=== PATIENT | female | born 1945 | race Caucasian/White ===

== ENCOUNTER 2018-06-20 11:44 | Observation (INO) | payer MEDICARE ==
[2018-06-20 11:48] VITALS: BMI 34.3
--- NOTE | 2018-06-20 12:29 | ED PDOC ---
HPI: CCC, URI, Sore Throat Time Seen by Provider: 06/20/18 12:15 Chief Complaint (Nursing): ENT Problem Chief Complaint (Provider): EENT problem History Per: Patient History/Exam Limitations: no limitations Onset/Duration Of Symptoms: Days (4x) Current Symptoms Are (Timing): Still Present Location Of Pain: Ear(s) (bilateral) Ear Symptoms: Bilateral: Ear Pain (with ringing) Severity: Moderate Additional Complaint(s): 73 year old female with a past medical history of diabetes, hypertension, and hyperlipidemia presents to the ED for an evaluation of bilateral ear pain and ringing associated with difficulty hearing that started 3x days ago. Patient states that she was seen in the clinic for the same complaint, and had bloodwork done. Patient was noted to have high cholesterol and was given a prescription for the pain. Patient states that the pain has persisted, prompting ED visit today. PMD: [facility] Past Medical History Reviewed: Historical Data, Nursing Documentation, Vital Signs Vital Signs: Last Vital Signs Temp 98.0 F 06/20/18 11:48 Pulse 93 H 06/20/18 11:48 Resp 18 06/20/18 11:48 BP 147/78 06/20/18 11:48 Pulse Ox 99 06/20/18 11:48 RENÉ Report Viewed: Yes - Medical History PMH: Diabetes, HTN, Hyperlipidemia - Surgical History Other surgeries: left knee surgery - Family History Family History: States: No Known Family Hx - Social History Current smoker - smoking cessation education provided: No Alcohol: None Drugs: Denies - Home Medications Home Medications: Ambulatory Orders Medication Instructions Recorded Amitriptyline [Elavil] 1 tab PO HS 06/20/18 Atorvastatin Calcium 20 mg PO DAILY 06/20/18 Losartan/Hydrochlorothiazide 1 tab PO DAILY 06/20/18 [Losartan-Hctz 100-25 mg Tab] Naproxen [Naprosyn] 500 mg PO Q12 PRN 06/20/18 Sitagliptin Phos/Metformin HCl 1 tab PO BID 06/20/18 [Janumet 50-1,000 mg Tablet] - Allergies Allergies/Adverse Reactions: Allergies Allergy/AdvReac Type Severity Reaction Status Date / Time No Known Allergies Allergy Verified 06/20/18 11:48 Review of Systems ROS Statement: Except As Marked, All Systems Reviewed And Found Negative ENT: Positive for: Ear Pain (ear ringing, difficulty hearing) Physical Exam - Reviewed Nursing Documentation Reviewed: Yes Vital Signs Reviewed: Yes - Physical Exam Appears: Positive for: Well, Non-toxic, No Acute Distress Head Exam: Positive for: ATRAUMATIC, NORMOCEPHALIC Skin: Positive for: Normal Color, Warm, Dry Eye Exam: Positive for: Normal appearance, EOMI, PERRL ENT: Positive for: Other (left ear: wax noted) Neurological/Psych: Positive for: Awake, Alert, Oriented (3x) - Laboratory Results Result Diagrams: 06/20/18 13:30 06/20/18 13:30 - ECG ECG Rhythm: Positive for: Sinus Rhythm (nsr 71bpm; RBBB) O2 Sat by Pulse Oximetry: 99 (RA) Pulse Ox Interpretation: Normal - CT Scan/US CT head w/o contrast Other Rad Studies (CT/US): Read By Radiologist, Radiology Report Reviewed (see MDM note) - Progress ED Course And Treament: ZOSYN 3.375GM IV X 1 DOSE DECADRON 10 MG IV X 1 DOSE TORADOL 15 MG IV X 1 DOSE Medical Decision Making Medical Decision Makin:15 Initial impression: 73 year old female with bilateral ear pain Initial plan: Left ear noted to have wax. After wax removal, patient states that her symptoms are the same. Patient notes that the pain in her right ear is intermittent, and the pain is mostly in her left ear. * CT head w/o contrast * reevaluation 13:20 CT head read and reviewed by radiologist FINDINGS: HEMORRHAGE: No intracranial hemorrhage. BRAIN: No mass effect or edema. Mild cerebral cortical atrophy is noted consistent with the patient's age. Minor microangiopathic changes are seen in the white matter tracts. No cortical effacement is seen. There is calcific atherosclerotic change of the distal intracranial internal carotid arteries. Retro-orbital regions are unremarkable. No tonsillar ectopia is seen. No sellar masses are noted VENTRICLES: Unremarkable. No hydrocephalus. CALVARIUM: Unremarkable. PARANASAL SINUSES: Mild mucosal changes are seen in the ethmoid air cell region. No fluid levels are seen in the sinuses. MASTOID AIR CELLS: There is moderate bilateral mastoid air cell opacifications and fluid with portions of the fluid noted in the middle ear cavity regions. No gross bone destruction is appreciated. Findings suggest bilateral mastoiditis, mastoid air cell disease, and otitis media. OTHER FINDINGS: None. IMPRESSION: Bilateral mastoid air cell disease and otitis media. No gross bone destruction. Unremarkable CT scan of the brain for intracranial hemorrhage or recent infarct. 15:[address] reviewed with him. recommends steroids and admission. Discussed with for admission. Scribe Attestation: Documented by Shira Donnelly, acting as a scribe for Judd Crowell PA-C. Provider Scribe Attestation: All medical record entries made by the Scribe were at my direction and personally dictated by me. I have reviewed the chart and agree that the record accurately reflects my personal performance of the history, physical exam, medical decision making, and the department course for this patient. I have also personally directed, reviewed, and agree with the discharge instructions and disposition. Disposition - Clinical Impression Clinical Impression: Mastoiditis - Patient ED Disposition Is Patient to be Admitted: Yes - Disposition Disposition Time: 15:14 Condition: FAIR - Pt Status Changed To: Hospital Disposition Of: Observation
--- NOTE | 2018-06-20 13:23 | CT ---
Date of service: 06/20/2018 PROCEDURE: CT HEAD WITHOUT CONTRAST. HISTORY: ear pain/loss of hearing COMPARISON: None available. TECHNIQUE: Axial computed tomography images were obtained through the head/brain without intravenous contrast. Radiation dose: Total exam DLP = 867.54 mGy-cm. This CT exam was performed using one or more of the following dose reduction techniques: Automated exposure control, adjustment of the mA and/or kV according to patient size, and/or use of iterative reconstruction technique. FINDINGS: HEMORRHAGE: No intracranial hemorrhage. BRAIN: No mass effect or edema. Mild cerebral cortical atrophy is noted consistent with the patient's age. Minor microangiopathic changes are seen in the white matter tracts. No cortical effacement is seen. There is calcific atherosclerotic change of the distal intracranial internal carotid arteries. Retro-orbital regions are unremarkable. No tonsillar ectopia is seen. No sellar masses are noted VENTRICLES: Unremarkable. No hydrocephalus. CALVARIUM: Unremarkable. PARANASAL SINUSES: Mild mucosal changes are seen in the ethmoid air cell region. No fluid levels are seen in the sinuses. MASTOID AIR CELLS: There is moderate bilateral mastoid air cell opacifications and fluid with portions of the fluid noted in the middle ear cavity regions. No gross bone destruction is appreciated. Findings suggest bilateral mastoiditis, mastoid air cell disease, and otitis media. OTHER FINDINGS: None. IMPRESSION: Bilateral mastoid air cell disease and otitis media. No gross bone destruction. Unremarkable CT scan of the brain for intracranial hemorrhage or recent infarct.
[2018-06-20] MEDS ORDERED: Piperacillin/Tazobact 3.375 GM in Sodium Chloride 0.9% 100 ML IVPB STA (13:30)
[2018-06-20] MEDS ORDERED: Piperacillin/Tazobact 3.375 gm Inj IVPB ONE (13:34)
[2018-06-20 13:50] LABS: VENOUS BLOOD GAS PCO2 50 mmHg (40-60); VENOUS BLOOD GAS PO2 18 mm/Hg (30-55)
[2018-06-20 14:24] LABS: BASO # 0.1 K/uL (0.0-0.2); EOS # 0.2 K/uL (0.0-0.7); EOS % 2.7 % (0.0-4.0); HEMOGLOBIN 13.5 g/dL (12.0-16.0); LYMPH # 1.5 K/uL (1.0-4.3); MEAN CELL VOLUME 88.7 fl (81.0-99.0); MEAN CORPUSCULAR HEMOGLOBIN 29.4 pg (27.0-31.0); MEAN CORPUSCULAR HGB CONC 33.2 g/dL (33.0-37.0); MEAN PLATELET VOLUME 9.3 fl (7.2-11.7); MONO # 0.7 K/uL (0.0-0.8); MONO % 9.7 % (0.0-10.0); NEUT % 66.6 % (50.0-75.0); NRBC % 0.1 % (0.0-0.0); RBC 4.59 Mil/uL (3.80-5.20); RED CELL DISTRIBUTION WIDTH 14.1 % (11.5-14.5); WHITE BLOOD COUNT 7.6 K/uL (4.8-10.8)
[2018-06-20 14:47] LABS: BLOOD UREA NITROGEN 27 mg/dl (7-17); GFR NON-AFRICAN AMERICAN 55
[2018-06-20] MEDS ORDERED: Dexamethasone 10 MG in Dextrose 5% In Water 50 ML IV ONE (14:51)
--- NOTE | 2018-06-20 15:44 | CP.PCM.HP ---
<Brianna Alvarado - Last Filed: 06/20/18 17:15> History of Present Illness - History of Present Illness History of Present Illness: Pt is a 73 yo F with a pmhx of DM, HTN, HLD presented to the ED due to to fullness/throbbing pain in B/L ears starting 3 days ago, headache, pt took ibuprofen for pain. Pt was recently seen by her ENT who performed wax removal and sent her here due to mastoiditis. Pt has no hx of being hard of hearing or wears hearing aids. Reports fevers and chills. Denies CP/SOB/N/V/D/C. PMD: Dr. Stone Ahn ENT: Dr. Morgan PMHx:DM, HTN, HLD, psoriasis Meds: Naprosyn 500mg Q12, Amitriptyline 10mg HS, Atorvastatin 20mg QD, Losartan- HCTZ 100-25mg QD, Janumet 50-1,000mg BID Allergies: NKDA Surg: L knee surgery 2013 Social: Denies tobacco, EtOH or drug use Family Hx: Grandmother ovarian Ca Code status: Full code ED course: Zosyn x1, Decadron x1, Toradol x1, Head CT without contrast- Bilateral mastoid air cell disease and otitis media. No gross bone destruction. Unremarkable CT scan of the brain for intracranial hemorrhage or recent infarct. CBC, VBG, BMP, U/A Present on Admission - Present on Admission Any Indicators Present on Admission: No History of DVT/PE: No History of Uncontrolled Diabetes: No Urinary Catheter: No Decubitus Ulcer Present: No Review of Systems - Constitutional Constitutional: Chills, Fever, Headache - EENT Ears: Ear Pain (Fullness/throbbing ) Past Patient History - Past Social History Smoking Status: Never Smoked Alcohol: None Drugs: Denies - CARDIAC Hx Hypertension: Yes - ENDOCRINE/METABOLIC Hx Diabetes Mellitus Type 2: Yes - PSYCHIATRIC Hx Substance Use: No - SURGICAL HISTORY Hx Surgeries: Yes Hx Orthopedic Surgery: Yes (left knee) - ANESTHESIA Hx Anesthesia: Yes Meds Allergies/Adverse Reactions: Allergies Allergy/AdvReac Type Severity Reaction Status Date / Time No Known Allergies Allergy Verified 06/20/18 11:48 Physical Exam - Constitutional Appears: Non-toxic, No Acute Distress - Head Exam Head Exam: ATRAUMATIC, NORMAL INSPECTION, NORMOCEPHALIC - Eye Exam Eye Exam: EOMI - ENT Exam ENT Exam: Mucous Membranes Moist, Normal External Ear Exam Additional comments: fluid behind TM's B/L, non erythematous and nonbulging TM - Respiratory Exam Respiratory Exam: Clear to Auscultation Bilateral. absent: Rales, Rhonchi, Wheezes - Cardiovascular Exam Cardiovascular Exam: RRR, +S1, +S2 - GI/Abdominal Exam GI & Abdominal Exam: Normal Bowel Sounds, Soft. absent: Tenderness - Extremities Exam Extremities exam: Positive for: normal inspection - Neurological Exam Neurological exam: Alert, Oriented x3 Results - Vital Signs Recent Vital Signs: Last Vital Signs Temp 98.0 F 06/20/18 11:48 Pulse 93 H 06/20/18 11:48 Resp 18 06/20/18 11:48 BP 147/78 06/20/18 11:48 Pulse Ox 99 06/20/18 15:15 - Labs Result Diagrams: 06/20/18 13:30 06/20/18 13:30 Labs: Laboratory Results - last 24 hr 06/20/18 06/20/18 06/20/18 13:30 13:30 13:42 WBC 7.6 RBC 4.59 Hgb 13.5 Hct 40.7 MCV 88.7 MCH 29.4 MCHC 33.2 RDW 14.1 Plt Count 225 MPV 9.3 Neut % (Auto) 66.6 Lymph % (Auto) 20.0 [place] % (Auto) 9.7 Eos % (Auto) 2.7 Baso % (Auto) 1.0 Neut # (Auto) 5.0 Lymph # (Auto) 1.5 [place] # (Auto) 0.7 Eos # (Auto) 0.2 Baso # (Auto) 0.1 pO2 18 L VBG pH 7.40 VBG pCO2 50 VBG HCO3 26.9 VBG Total CO2 32.5 H VBG O2 Sat (Calc) 29.8 L VBG Base Excess 5.0 H VBG Potassium 3.5 L Glucose 90 Lactate 1.1 FiO2 21.0 Sodium 141 139.0 Potassium 3.7 Chloride 100 101.0 Carbon Dioxide 30 Anion Gap 15 BUN 27 H Creatinine 1.0 Est GFR ( Amer) > 60 Est GFR (Non-Af Amer) 55 Random Glucose 95 Calcium 10.0 Venous Blood Potassium 3.5 L Assessment & Plan - Assessment and Plan (Free Text) Assessment: Pt is a 73 yo F with a pmhx of DM, HTN, HLD presented to the ED due to to fullness/throbbing pain in B/L ears starting 3 days ago admitted due to B/L mastoiditis B/L Mastoiditis acute Zosyn x1, Decadron x1, Toradol x1, EKG sinus rhythm Start Zosyn 3.375mg Q 6h (Day 1) Head CT without contrast- Bilateral mastoid air cell disease and otitis media. No gross bone destruction. Unremarkable CT scan of the brain for intracranial hemorrhage or recent infarct. ENT consulted-Dr. Cathy Phillips f/u reccs F/u BMP, CBC, blood cx in AM DM chronic, controlled POC 121 c/w Metformin 1000mg BID and Januvia 100mg Daily HTN chronic, controlled c/w HCTZ 25mg QD, Cozaar 100mg QD HLD chronic, controlled c/w Lipitor Diet Heart healthy DVT PPx Lovenox 40mg SC <Asif Estebannino D - Last Filed: 06/21/18 12:48> Results - Vital Signs Recent Vital Signs: Last Vital Signs Temp 98.0 F 06/21/18 07:37 Pulse 63 06/21/18 09:31 Resp 19 06/21/18 07:37 BP 132/76 06/21/18 09:31 Pulse Ox 95 06/21/18 07:37 - Labs Result Diagrams: 06/21/18 06:30 06/21/18 06:30 Labs: Laboratory Results - last 24 hr 06/20/18 06/20/18 06/20/18 13:30 13:30 13:42 WBC 7.6 RBC 4.59 Hgb 13.5 Hct 40.7 MCV 88.7 MCH 29.4 MCHC 33.2 RDW 14.1 Plt Count 225 MPV 9.3 Neut % (Auto) 66.6 Lymph % (Auto) 20.0 [place] % (Auto) 9.7 Eos % (Auto) 2.7 Baso % (Auto) 1.0 Neut # (Auto) 5.0 Lymph # (Auto) 1.5 [place] # (Auto) 0.7 Eos # (Auto) 0.2 Baso # (Auto) 0.1 pO2 18 L VBG pH 7.40 VBG pCO2 50 VBG HCO3 26.9 VBG Total CO2 32.5 H VBG O2 Sat (Calc) 29.8 L VBG Base Excess 5.0 H VBG Potassium 3.5 L Glucose 90 Lactate 1.1 FiO2 21.0 Sodium 141 139.0 Potassium 3.7 Chloride 100 101.0 Carbon Dioxide 30 Anion Gap 15 BUN 27 H Creatinine 1.0 Est GFR ( Amer) > 60 Est GFR (Non-Af Amer) 55 POC Glucose (mg/dL) Random Glucose 95 Calcium 10.0 Venous Blood Potassium 3.5 L Urine Color Urine Clarity Urine pH Ur Specific [place] Urine Protein Urine Glucose (UA) Urine Ketones Urine Blood Urine Nitrate Urine Bilirubin Urine Urobilinogen Ur Leukocyte Esterase Urine RBC (Auto) Urine Microscopic WBC Ur Squamous Epith Cells Amorphous Sediment Urine Bacteria 06/20/18 06/20/18 06/21/18 16:18 16:50 00:32 WBC RBC Hgb Hct MCV MCH MCHC RDW Plt Count MPV Neut % (Auto) Lymph % (Auto) [place] % (Auto) Eos % (Auto) Baso % (Auto) Neut # (Auto) Lymph # (Auto) [place] # (Auto) Eos # (Auto) Baso # (Auto) pO2 VBG pH VBG pCO2 VBG HCO3 VBG Total CO2 VBG O2 Sat (Calc) VBG Base Excess VBG Potassium Glucose Lactate FiO2 Sodium Potassium Chloride Carbon Dioxide Anion Gap BUN Creatinine Est GFR ( Amer) Est GFR (Non-Af Amer) POC Glucose (mg/dL) 121 H 209 H Random Glucose Calcium Venous Blood Potassium Urine Color Clementine Urine Clarity Turbid Urine pH 5.0 Ur Specific [place] 1.025 Urine Protein 30 Urine Glucose (UA) Neg Urine Ketones Negative Urine Blood Moderate Urine Nitrate Negative Urine Bilirubin Negative Urine Urobilinogen 0.2-1.0 Ur Leukocyte Esterase Trace Urine RBC (Auto) 15 H Urine Microscopic WBC 8 H Ur Squamous Epith Cells 7 H Amorphous Sediment Rare H Urine Bacteria Occ H 06/21/18 06/21/18 06/21/18 04:57 06:30 06:30 WBC 7.5 RBC 4.43 Hgb 13.0 Hct 39.4 MCV 88.9 MCH 29.3 MCHC 33.0 RDW 14.1 Plt Count 250 MPV 9.4 Neut % (Auto) 84.4 H Lymph % (Auto) 11.6 L [place] % (Auto) 3.6 Eos % (Auto) 0.1 Baso % (Auto) 0.3 Neut # (Auto) 6.4 Lymph # (Auto) 0.9 L [place] # (Auto) 0.3 Eos # (Auto) 0.0 Baso # (Auto) 0.0 pO2 VBG pH VBG pCO2 VBG HCO3 VBG Total CO2 VBG O2 Sat (Calc) VBG Base Excess VBG Potassium Glucose Lactate FiO2 Sodium 139 Potassium 4.0 Chloride 100 Carbon Dioxide 26 Anion Gap 17 BUN 33 H Creatinine 1.2 Est GFR ( Amer) 53 Est GFR (Non-Af Amer) 44 POC Glucose (mg/dL) 153 H Random Glucose 161 H Calcium 9.6 Venous Blood Potassium Urine Color Urine Clarity Urine pH Ur Specific [place] Urine Protein Urine Glucose (UA) Urine Ketones Urine Blood Urine Nitrate Urine Bilirubin Urine Urobilinogen Ur Leukocyte Esterase Urine RBC (Auto) Urine Microscopic WBC Ur Squamous Epith Cells Amorphous Sediment Urine Bacteria 06/21/18 11:01 WBC RBC Hgb Hct MCV MCH MCHC RDW Plt Count MPV Neut % (Auto) Lymph % (Auto) [place] % (Auto) Eos % (Auto) Baso % (Auto) Neut # (Auto) Lymph # (Auto) [place] # (Auto) Eos # (Auto) Baso # (Auto) pO2 VBG pH VBG pCO2 VBG HCO3 VBG Total CO2 VBG O2 Sat (Calc) VBG Base Excess VBG Potassium Glucose Lactate FiO2 Sodium Potassium Chloride Carbon Dioxide Anion Gap BUN Creatinine Est GFR ( Amer) Est GFR (Non-Af Amer) POC Glucose (mg/dL) 212 H Random Glucose Calcium Venous Blood Potassium Urine Color Urine Clarity Urine pH Ur Specific [place] Urine Protein Urine Glucose (UA) Urine Ketones Urine Blood Urine Nitrate Urine Bilirubin Urine Urobilinogen Ur Leukocyte Esterase Urine RBC (Auto) Urine Microscopic WBC Ur Squamous Epith Cells Amorphous Sediment Urine Bacteria Attending/Attestation - Attestation I have personally seen and examined this patient.: Yes I have fully participated in the care of the patient.: Yes I have reviewed all pertinent clinical information: Yes Notes (Text): 06/21/18 12:47 Patient seen and examined with resident. Case discussed and agreed with assessment and plan of management
[2018-06-20] MEDS ORDERED: Oxycodone/Acetaminophen 5/325 mg Tab PO PRN (15:45)
--- NOTE | 2018-06-20 16:21 | RAD ---
Date of service: 06/20/2018 HISTORY: ROUTINE FOR ADMISSION COMPARISON: No prior. TECHNIQUE: Chest PA and lateral views FINDINGS: LUNGS: Mild interstitial changes are noted. No focal alveolar infiltrate is seen. Trachea is midline. No hilar adenopathy is noted. Retrosternal region is unremarkable. PLEURA: No significant pleural effusion identified. No pneumothorax apparent. CARDIOVASCULAR: No aortic atherosclerotic calcification present. Normal cardiac size. No pulmonary vascular congestion. OSSEOUS STRUCTURES: Mild degenerative changes are seen in the spine without compression fracture. VISUALIZED UPPER ABDOMEN: Normal. OTHER FINDINGS: None. IMPRESSION: No active disease.
[2018-06-20] MEDS: Piperacillin/Tazobact 3.375 GM in Sodium Chloride 0.9% 100 ML IVPB SCH ×2 (16:25→21:12)
[2018-06-20 17:14] LABS: SQUAMOUS EPITHIAL 7 /hpf (0-5); URINE AMORPHOUS SEDIMENT RARE /ul (<OCC); URINE BACTERIA OCC (<OCC); URINE BILIRUBIN NEGATIVE (NEGATIVE); URINE BLOOD MODERATE (NEGATIVE); URINE CLARITY TURBID (Clear); URINE COLOR AMBER (YELLOW); URINE GLUCOSE (UA) NEG (NEGATIVE); URINE LEUKOCYTE ESTERASE TRACE Leu/uL (Negative); URINE PROTEIN 30 mg/dL (NEGATIVE); URINE UROBILINOGEN 0.2-1.0 mg/dL (0.2-1.0)
--- NOTE | 2018-06-20 21:17 | CARD ---
APPROVED REPORT Date of service: 06/20/2018 EKG Measurement Heart [id number] <Conclusion> Normal sinus rhythm Right bundle branch block Possible Lateral infarct, age undetermined Abnormal ECG
[2018-06-21] MEDS: Piperacillin/Tazobact 3.375 GM in Sodium Chloride 0.9% 100 ML IVPB SCH ×3 (04:42→15:51)
[2018-06-21 07:13] LABS: BASO % 0.3 % (0.0-2.0); EOS % 0.1 % (0.0-4.0); LYMPH # 0.9 K/uL (1.0-4.3); LYMPH % 11.6 % (20.0-40.0); MEAN CELL VOLUME 88.9 fl (81.0-99.0); MEAN CORPUSCULAR HEMOGLOBIN 29.3 pg (27.0-31.0); MEAN PLATELET VOLUME 9.4 fl (7.2-11.7); MONO # 0.3 K/uL (0.0-0.8); MONO % 3.6 % (0.0-10.0); NEUT # 6.4 K/uL (1.8-7.0); NEUT % 84.4 % (50.0-75.0); NRBC % 0.1 % (0.0-0.0); RBC 4.43 Mil/uL (3.80-5.20); RED CELL DISTRIBUTION WIDTH 14.1 % (11.5-14.5); WHITE BLOOD COUNT 7.5 K/uL (4.8-10.8)
[2018-06-21 07:26] LABS: CALCIUM 9.6 mg/dL (8.4-10.2)
--- NOTE | 2018-06-21 08:19 | CP.PCM.PN ---
<Brianna Alvarado - Last Filed: 06/21/18 14:42> Subjective - Date & Time of Evaluation Date of Evaluation: 06/21/18 Time of Evaluation: 08:00 - Subjective Subjective: Pt seen and examined at bedside. Pt feels well, reports fullness in ears and hearing has improved. Tolerating oral intake. Denies F/C/CP/SOB/N/V/D/C or dysuria. Objective - Vital Signs/Intake and Output Vital Signs (last 24 hours): Temp Pulse Resp BP Pulse Ox 98.0 F 63 19 132/76 95 06/21/18 07:37 06/21/18 07:37 06/21/18 07:37 06/21/18 07:37 06/21/18 07:37 - Medications Medications: Current Medications Amitriptyline HCl (Elavil) 10 mg PO HS [facility] Last Admin: 06/20/18 21:12 Dose: 10 mg Atorvastatin Calcium (Lipitor) 20 mg PO DAILY [facility] Docusate Sodium (Colace) 100 mg PO BID [facility] Last Admin: 06/20/18 16:25 Dose: 100 mg Enoxaparin Sodium (Lovenox) 40 mg SC DAILY [facility]; Protocol Hydrochlorothiazide (Hydrodiuril) 25 mg PO DAILY [facility] Piperacillin Sod/Tazobactam (Sod 3.375 gm/ Sodium Chloride) 100 mls @ 100 mls/hr IVPB Q6 [facility]; Protocol Last Admin: 06/21/18 04:42 Dose: 100 mls/hr Losartan Potassium (Cozaar) 100 mg PO DAILY [facility] Metformin HCl (Glucophage) 1,000 mg PO BID [facility] Last Admin: 06/20/18 16:24 Dose: 1,000 mg Oxycodone/Acetaminophen (Percocet 5/325 Mg Tab) 1 tab PO Q4 PRN PRN Reason: Pain, moderate (4-7) Stop: 06/23/18 15:46 Pantoprazole Sodium (Protonix Ec Tab) 40 mg PO DAILY [facility] Sitagliptin Phosphate (Januvia) 100 mg PO DAILY [facility] - Labs Labs: 06/21/18 06:30 06/21/18 06:30 - Constitutional Appears: Non-toxic, No Acute Distress - Head Exam Head Exam: NORMAL INSPECTION - Eye Exam Eye Exam: EOMI, Normal appearance - ENT Exam ENT Exam: Mucous Membranes Moist Additional comments: fluid behind TM's B/L, non erythematous and nonbulging TM - Respiratory Exam Respiratory Exam: Clear to Ausculation Bilateral. absent: Rales, Rhonchi, Wheezes - Cardiovascular Exam Cardiovascular Exam: RRR, +S1, +S2 - GI/Abdominal Exam GI & Abdominal Exam: Soft, Normal Bowel Sounds. absent: Tenderness - Extremities Exam Extremities Exam: Normal Inspection. absent: Pedal Edema - Neurological Exam Neurological Exam: Alert, Awake, Oriented x3 Assessment and Plan - Assessment and Plan (Free Text) Assessment: Pt is a 73 yo F with a pmhx of DM, HTN, HLD presented to the ED due to to fullness/throbbing pain in B/L ears starting 3 days ago admitted due to B/L m astoiditis B/L Mastoiditis acute, fullness and hearing improving Zosyn x1, Decadron x1, Toradol x1, EKG sinus rhythm c/w Zosyn 3.375mg IV Q6h (Day 2) Head CT without contrast- Bilateral mastoid air cell disease and otitis media. No gross bone destruction. Unremarkable CT scan of the brain for intracranial hemorrhage or recent infarct. ENT consulted-Dr. Cathy Phillips f/u reccs Blood cx- no growth @ 24hrs F/u BMP, CBC in AM UTI acute U/A abnormal c/w Zosyn 3.375mg Q 6h (Day 2) DM chronic, controlled POC 212 c/w Metformin 1000mg BID and Januvia 100mg Daily HTN chronic, controlled c/w HCTZ 25mg QD, Cozaar 100mg QD HLD chronic, controlled c/w Lipitor Diet Heart healthy DVT PPx Lovenox 40mg SC <Esteban,Dilan D - Last Filed: 06/21/18 23:51> Objective - Vital Signs/Intake and Output Vital Signs (last 24 hours): Temp Pulse Resp BP Pulse Ox 98.1 F 66 20 123/73 92 L 06/21/18 16:29 06/21/18 16:29 06/21/18 16:29 06/21/18 16:29 06/21/18 16:29 - Labs Labs: 06/21/18 06:30 06/21/18 06:30 Attending/Attestation - Attestation I have personally seen and examined this patient.: Yes I have fully participated in the care of the patient.: Yes I have reviewed all pertinent clinical information, including history, physical exam and plan: Yes Notes (Text): 06/21/18 23:50 Patient seen and examined with resident. Case discussed and agreed with lou bailon.
[2018-06-21] MEDS ORDERED: Enoxaparin 40 mg Syringe SC SCH (09:00)
[2018-06-21] MEDS ORDERED: Pantoprazole 40 mg EC Tab PO SCH (09:00)
[2018-06-21] MEDS ORDERED: Patient's Own Med (Losartan/Hydrochlorothiazide [Losartan-Hctz 100-25 Mg Tab] 1 TAB) PO SCH (09:00)
[2018-06-21 16:30] VITALS: BP 123/73; PULSE 66; RESP 20; TEMP 98.1; O2SAT 92
--- NOTE | 2018-06-21 17:27 | CP.PCM.DIS ---
<CandicecoleenBrianna patel - Last Filed: 06/21/18 17:37> Provider - Provider Date of Admission: 06/20/18 15:14 Attending physician: Dilan Esteban MD Primary care physician: Dr. Stone Ahn Consults: 06/20/18 15:12 ENT [Otolaryngology Consult] Stat Consulting Provider: Alna Morgan Consulting Physician: Alan Morgan Reason for Consult: MASTOIDITIS Time Spent in preparation of Discharge (in minutes): 10 Diagnosis - Discharge Diagnosis (1) Mastoiditis Status: Acute Comment: acute. B/L. c/w outpt Augmentin. F/u with Dr. Morgan in 1 week (2) Otitis media Status: Acute Comment: acute. B/L. c/w outpt Augmentin. F/u with Dr. Morgan in 1 week Hospital Course - Lab Results Lab Results: Micro Results 06/20/18 13:30 Blood-Venous Blood Culture - Preliminary NO GROWTH AFTER 24 HOURS 06/20/18 13:45 Blood-Venous Blood Culture - Preliminary NO GROWTH AFTER 24 HOURS Most Recent Lab Values WBC 7.5 K/uL (4.8-10.8) 06/21/18 06:30 RBC 4.43 Mil/uL (3.80-5.20) 06/21/18 06:30 Hgb 13.0 g/dL (12.0-16.0) 06/21/18 06:30 Hct 39.4 % (34.0-47.0) 06/21/18 06:30 MCV 88.9 fl (81.0-99.0) 06/21/18 06:30 MCH 29.3 pg (27.0-31.0) 06/21/18 06:30 MCHC 33.0 g/dL (33.0-37.0) 06/21/18 06:30 RDW 14.1 % (11.5-14.5) 06/21/18 06:30 Plt Count 250 K/uL (130-400) 06/21/18 06:30 MPV 9.4 fl (7.2-11.7) 06/21/18 06:30 Neut % (Auto) 84.4 % (50.0-75.0) H 06/21/18 06:30 Lymph % (Auto) 11.6 % (20.0-40.0) L 06/21/18 06:30 [place] % (Auto) 3.6 % (0.0-10.0) 06/21/18 06:30 Eos % (Auto) 0.1 % (0.0-4.0) 06/21/18 06:30 Baso % (Auto) 0.3 % (0.0-2.0) 06/21/18 06:30 Neut # (Auto) 6.4 K/uL (1.8-7.0) 06/21/18 06:30 Lymph # (Auto) 0.9 K/uL (1.0-4.3) L 06/21/18 06:30 [place] # (Auto) 0.3 K/uL (0.0-0.8) 06/21/18 06:30 Eos # (Auto) 0.0 K/uL (0.0-0.7) 06/21/18 06:30 Baso # (Auto) 0.0 K/uL (0.0-0.2) 06/21/18 06:30 pO2 18 mm/Hg (30-55) L 06/20/18 13:42 VBG pH 7.40 (7.32-7.43) 06/20/18 13:42 VBG pCO2 50 mmHg (40-60) 06/20/18 13:42 VBG HCO3 26.9 mmol/L 06/20/18 13:42 VBG Total CO2 32.5 mmol/L (22-28) H 06/20/18 13:42 VBG O2 Sat (Calc) 29.8 % (40-65) L 06/20/18 13:42 VBG Base Excess 5.0 mmol/L (0.0-2.0) H 06/20/18 13:42 VBG Potassium 3.5 mmol/L (3.6-5.2) L 06/20/18 13:42 Sodium 139.0 mmol/L (132-148) 06/20/18 13:42 Chloride 101.0 mmol/L (98-107) 06/20/18 13:42 Glucose 90 mg/dL (65-105) 06/20/18 13:42 Lactate 1.1 mmol/L (0.7-2.1) 06/20/18 13:42 FiO2 21.0 % 06/20/18 13:42 Sodium 139 mmol/l (132-148) 06/21/18 06:30 Potassium 4.0 MMOL/L (3.6-5.0) 06/21/18 06:30 Chloride 100 mmol/L (98-107) 06/21/18 06:30 Carbon Dioxide 26 mmol/L (22-30) 06/21/18 06:30 Anion Gap 17 (10-20) 06/21/18 06:30 BUN 33 mg/dl (7-17) H 06/21/18 06:30 Creatinine 1.2 mg/dl (0.7-1.2) 06/21/18 06:30 Est GFR ( Amer) 53 06/21/18 06:30 Est GFR (Non-Af Amer) 44 06/21/18 06:30 POC Glucose (mg/dL) 131 mg/dL (65-110) H 06/21/18 15:53 Random Glucose 161 mg/dL (65-105) H 06/21/18 06:30 Calcium 9.6 mg/dL (8.4-10.2) 06/21/18 06:30 Venous Blood Potassium 3.5 mmol/L (3.6-5.2) L 06/20/18 13:42 Urine Color Clementine (YELLOW) 06/20/18 16:50 Urine Clarity Turbid (Clear) 06/20/18 16:50 Urine pH 5.0 (5.0-8.0) 06/20/18 16:50 Ur Specific [place] 1.025 (1.003-1.030) 06/20/18 16:50 Urine Protein 30 mg/dL (NEGATIVE) 06/20/18 16:50 Urine Glucose (UA) Neg mg/dL (NEGATIVE) 06/20/18 16:50 Urine Ketones Negative mg/dL (NEGATIVE) 06/20/18 16:50 Urine Blood Moderate (NEGATIVE) 06/20/18 16:50 Urine Nitrate Negative (NEGATIVE) 06/20/18 16:50 Urine Bilirubin Negative (NEGATIVE) 06/20/18 16:50 Urine Urobilinogen 0.2-1.0 mg/dL (0.2-1.0) 06/20/18 16:50 Ur Leukocyte Esterase Trace Cara/uL (Negative) 06/20/18 16:50 Urine RBC (Auto) 15 /hpf (0-3) H 06/20/18 16:50 Urine Microscopic WBC 8 /hpf (0-5) H 06/20/18 16:50 Ur Squamous Epith Cells 7 /hpf (0-5) H 06/20/18 16:50 Amorphous Sediment Rare /ul (<OCC) H 06/20/18 16:50 Urine Bacteria Occ (<OCC) H 06/20/18 16:50 - Hospital Course Hospital Course: Pt is a 73 yo F with a pmhx of DM, HTN, HLD presented to the ED on 06/20/18 due to to fullness/throbbing pain in B/L ears, headache that started 3 days prior to admission, pt took ibuprofen for pain, pt has no hx of being hard of hearing or wears hearing aids. Pt was recently seen by her ENT Dr. Morgan who performed ear wax removal and sent her here due to mastoiditis and B/L ear infection. ED course: Zosyn x1, Decadron x1, Toradol x1, Head CT without contrast- Bilateral mastoid air cell disease and otitis media. No gross bone destruction. Unremarkable CT scan of the brain for intracranial hemorrhage or recent infarct. CBC neg, VBG, BMP-wnl, U/A-trace LE, 8WBC, rare bacteria, CXR neg, Blood cx no growth at 24hours. Pt's hearing and ear fullness has improved, pt hemodynamically stable for discharged with Augmentin 875mg BID 7 days with outpt f/u with Dr. Morgan Discharge Exam - Head Exam Head Exam: NORMAL INSPECTION - Eye Exam Eye Exam: EOMI, Normal appearance - ENT Exam Additional comments: fluid behind TM's B/L, non erythematous and nonbulging TM - Respiratory Exam Respiratory Exam: Clear to PA & Lateral. absent: Rales, Rhonchi, Wheezes - Cardiovascular Exam Cardiovascular Exam: RRR, +S1, +S2 - GI/Abdominal Exam GI & Abdominal Exam: Normal Bowel Sounds. absent: Tenderness - Extremities Exam Extremities exam: normal inspection - Neurological Exam Neurological exam: Alert, Oriented x3 Discharge Plan - Discharge Medications Prescriptions: Amoxicillin/Clavulanate [Augmentin 875 MG-125 MG] 1 tab PO BID #14 tab - Follow Up Plan Condition: FAIR Disposition: HOME/ ROUTINE Instructions: Mastoiditis (DC) Additional Instructions: iesha augie paul Morgan 1 semana Referrals: Alan Morgan MD [Staff Provider] - <Dilan Esteban - Last Filed: 06/21/18 23:48> Provider - Provider Date of Admission: 06/20/18 15:14 Attending physician: Dilan Esteban MD Consults: 06/20/18 15:12 ENT [Otolaryngology Consult] Stat Consulting Provider: Alan Morgan Consulting Physician: Alan Morgan Reason for Consult: MASTOIDITIS Hospital Course - Lab Results Lab Results: Micro Results 06/20/18 13:30 Blood-Venous Blood Culture - Preliminary NO GROWTH AFTER 24 HOURS 06/20/18 13:45 Blood-Venous Blood Culture - Preliminary NO GROWTH AFTER 24 HOURS Most Recent Lab Values WBC 7.5 K/uL (4.8-10.8) 06/21/18 06:30 RBC 4.43 Mil/uL (3.80-5.20) 06/21/18 06:30 Hgb 13.0 g/dL (12.0-16.0) 06/21/18 06:30 Hct 39.4 % (34.0-47.0) 06/21/18 06:30 MCV 88.9 fl (81.0-99.0) 06/21/18 06:30 MCH 29.3 pg (27.0-31.0) 06/21/18 06:30 MCHC 33.0 g/dL (33.0-37.0) 06/21/18 06:30 RDW 14.1 % (11.5-14.5) 06/21/18 06:30 Plt Count 250 K/uL (130-400) 06/21/18 06:30 MPV 9.4 fl (7.2-11.7) 06/21/18 06:30 Neut % (Auto) 84.4 % (50.0-75.0) H 06/21/18 06:30 Lymph % (Auto) 11.6 % (20.0-40.0) L 06/21/18 06:30 [place] % (Auto) 3.6 % (0.0-10.0) 06/21/18 06:30 Eos % (Auto) 0.1 % (0.0-4.0) 06/21/18 06:30 Baso % (Auto) 0.3 % (0.0-2.0) 06/21/18 06:30 Neut # (Auto) 6.4 K/uL (1.8-7.0) 06/21/18 06:30 Lymph # (Auto) 0.9 K/uL (1.0-4.3) L 06/21/18 06:30 [place] # (Auto) 0.3 K/uL (0.0-0.8) 06/21/18 06:30 Eos # (Auto) 0.0 K/uL (0.0-0.7) 06/21/18 06:30 Baso # (Auto) 0.0 K/uL (0.0-0.2) 06/21/18 06:30 pO2 18 mm/Hg (30-55) L 06/20/18 13:42 VBG pH 7.40 (7.32-7.43) 06/20/18 13:42 VBG pCO2 50 mmHg (40-60) 06/20/18 13:42 VBG HCO3 26.9 mmol/L 06/20/18 13:42 VBG Total CO2 32.5 mmol/L (22-28) H 06/20/18 13:42 VBG O2 Sat (Calc) 29.8 % (40-65) L 06/20/18 13:42 VBG Base Excess 5.0 mmol/L (0.0-2.0) H 06/20/18 13:42 VBG Potassium 3.5 mmol/L (3.6-5.2) L 06/20/18 13:42 Sodium 139.0 mmol/L (132-148) 06/20/18 13:42 Chloride 101.0 mmol/L (98-107) 06/20/18 13:42 Glucose 90 mg/dL (65-105) 06/20/18 13:42 Lactate 1.1 mmol/L (0.7-2.1) 06/20/18 13:42 FiO2 21.0 % 06/20/18 13:42 Sodium 139 mmol/l (132-148) 06/21/18 06:30 Potassium 4.0 MMOL/L (3.6-5.0) 06/21/18 06:30 Chloride 100 mmol/L (98-107) 06/21/18 06:30 Carbon Dioxide 26 mmol/L (22-30) 06/21/18 06:30 Anion Gap 17 (10-20) 06/21/18 06:30 BUN 33 mg/dl (7-17) H 06/21/18 06:30 Creatinine 1.2 mg/dl (0.7-1.2) 06/21/18 06:30 Est GFR ( Amer) 53 06/21/18 06:30 Est GFR (Non-Af Amer) 44 06/21/18 06:30 POC Glucose (mg/dL) 131 mg/dL (65-110) H 06/21/18 15:53 Random Glucose 161 mg/dL (65-105) H 06/21/18 06:30 Calcium 9.6 mg/dL (8.4-10.2) 06/21/18 06:30 Venous Blood Potassium 3.5 mmol/L (3.6-5.2) L 06/20/18 13:42 Urine Color Clementine (YELLOW) 06/20/18 16:50 Urine Clarity Turbid (Clear) 06/20/18 16:50 Urine pH 5.0 (5.0-8.0) 06/20/18 16:50 Ur Specific [place] 1.025 (1.003-1.030) 06/20/18 16:50 Urine Protein 30 mg/dL (NEGATIVE) 06/20/18 16:50 Urine Glucose (UA) Neg mg/dL (NEGATIVE) 06/20/18 16:50 Urine Ketones Negative mg/dL (NEGATIVE) 06/20/18 16:50 Urine Blood Moderate (NEGATIVE) 06/20/18 16:50 Urine Nitrate Negative (NEGATIVE) 06/20/18 16:50 Urine Bilirubin Negative (NEGATIVE) 06/20/18 16:50 Urine Urobilinogen 0.2-1.0 mg/dL (0.2-1.0) 06/20/18 16:50 Ur Leukocyte Esterase Trace Cara/uL (Negative) 06/20/18 16:50 Urine RBC (Auto) 15 /hpf (0-3) H 06/20/18 16:50 Urine Microscopic WBC 8 /hpf (0-5) H 06/20/18 16:50 Ur Squamous Epith Cells 7 /hpf (0-5) H 06/20/18 16:50 Amorphous Sediment Rare /ul (<OCC) H 06/20/18 16:50 Urine Bacteria Occ (<OCC) H 06/20/18 16:50 Attending/Attestation - Attestation I have personally seen and examined this patient.: Yes I have fully participated in the care of the patient.: Yes I have reviewed all pertinent clinical information, including history, physical exam and plan: Yes Notes (Text): 06/21/18 23:47 Patient seen and examined with resident. Case discussed and agreed with assessment. Patient discharged in stable condition.
--- NOTE | 2018-06-22 04:08 | CON ---
DATE: 06/20/2018 REASON FOR CONSULTATION: Hearing loss. REQUESTING PHYSICIAN: Dilan Esteban MD. HISTORY OF PRESENT ILLNESS: This is a 73-year-old female with a multiple-day history of bilateral ear pain and hearing loss. Pain was constant, moderate in intensity; however, has resolved. At this point, the hearing loss is bilateral, constant, and is persistent. There is no ear pain. PAST MEDICAL HISTORY: As noted in the chart by me. MEDICATIONS: As noted in the chart by me. ALLERGIES: NOTED IN THE CHART BY ME. PHYSICAL EXAMINATION: HEENT: Head atraumatic and normocephalic. FACE: Good facial movements bilaterally. CONSTITUTIONAL: Well fed, well nourished. COMMUNICATION: Communicates well and appropriately. EXTERNAL NOSE AND EARS: No masses, no lesions, no erythema, no edema. INTERNAL NOSE AND EARS: Deviated septum. No masses, no lesions, no erythema, and no edema. EARS: TMs intact with fluid behind it bilaterally. ORAL CAVITY AND OROPHARYNX: No masses, no lesions, no erythema, no edema. LIPS AND GUMS: No masses, no lesions, no erythema, no edema. NECK: Supple. THYROID: No thyromegaly, no goiter. LYMPH NODES: No lymphadenopathy of the neck. NEUROLOGIC: The patient is awake, alert, oriented x3. LABORATORY DATA: CAT scan was reviewed by me. Review of bilateral otitis media. There is no bony destruction. ASSESSMENT: 1. Deviated septum. 2. Hearing loss. 3. Ear pain, resolved. 4. Bilateral acute otitis media. PLAN: The patient can go home on antibiotics and follow up as an outpatient. Alan Morgan MD
== END 2018-06-21 18:00 | disposition home or self-care (01) ==
LOC: H.ER 11:44 → H.ERHOLD 15:14 → H.MEDSURG1 18:20
DX: H70.93 Unspecified mastoiditis, bilateral (principal); H91.93 Unspecified hearing loss, bilateral; I10 Essential (primary) hypertension; J34.2 Deviated nasal septum; N39.0 Urinary tract infection, site not specified; Z79.84 Long term (current) use of oral hypoglycemic drugs; Z80.41 Family history of malignant neoplasm of ovary; L40.9 Psoriasis, unspecified; E11.9 Type 2 diabetes mellitus without complications; E78.00 Pure hypercholesterolemia, unspecified; E78.5 Hyperlipidemia, unspecified; H66.93 Otitis media, unspecified, bilateral
CPT/HCPCS: 36415; 70450; 71046; 80048; 81003; 82803; 82948; 85025; 87040; 93005; 96365; 96374; 99284; G0378; J1100; J1650; J1885; J2543

== ENCOUNTER 2018-07-01 15:57 | Emergency (ER) | payer MEDICARE ==
[2018-07-01 15:57] VITALS: BMI 34.3
[2018-07-01] MEDS ORDERED: DiphenhydrAMINE 50 mg/ml Inj IVP STA (16:54)
--- NOTE | 2018-07-01 17:11 | ED PDOC ---
HPI: Skin/Bite Injury Time Seen by Provider: 07/01/18 16:54 Chief Complaint (Nursing): Abnormal Skin Integrity Chief Complaint (Provider): Rash History Per: Patient History/Exam Limitations: no limitations Onset/Duration Of Symptoms: Days (x4) Current Symptoms Are (Timing): Still Present Additional Complaint(s): 73 year old female presents to the ED for evaluation of a rash. Patient was sent from clinic for a burning, itchy, red rash involving her chest wall, back, arms, and legs that has progressed since onset four days ago after completing a course of Augmentin. Rash unrelieved by calamine lotion. Of note, patient was recently discharged from hospital 06/21/18 after IV antibiotics for bilateral mastoiditis. PMD: [facility] Past Medical History Reviewed: Historical Data, Nursing Documentation, Vital Signs Vital Signs: Last Vital Signs Temp 98.2 F 07/01/18 16:40 Pulse 88 07/01/18 16:40 Resp 18 07/01/18 16:40 BP 100/62 07/01/18 16:40 Pulse Ox 98 07/01/18 16:40 Primary Care Provider: Doctor,Conversion - Medical History PMH: Depression, Diabetes, HTN, Hypercholesterolemia, Hyperlipidemia Denies: Chronic Kidney Disease - Surgical History Surgical History: No Surg Hx - Family History Family History: States: Unknown Family Hx - Social History Current smoker - smoking cessation education provided: No Alcohol: None Drugs: Denies - Home Medications Home Medications: Ambulatory Orders Medication Instructions Recorded Amitriptyline [Elavil] 1 tab PO HS 06/20/18 Atorvastatin Calcium 20 mg PO DAILY 06/20/18 Losartan/Hydrochlorothiazide 1 tab PO DAILY 06/20/18 [Losartan-Hctz 100-25 mg Tab] Naproxen [Naprosyn] 500 mg PO Q12 PRN 06/20/18 Sitagliptin Phos/Metformin HCl 1 tab PO BID 06/20/18 [Janumet 50-1,000 mg Tablet] Amoxicillin/Clavulanate [Augmentin 1 tab PO BID #14 tab 06/21/18 875 MG-125 MG] DiphenhydrAMINE [Benadryl] 1 - 2 tab PO Q6 PRN #24 cap 07/01/18 Famotidine [Pepcid] 20 mg PO BID #10 tab 07/01/18 Methylprednisolone [Medrol Dose 4 mg PO DAILY #21 mg 07/01/18 Pack (21 tabs)] - Allergies Allergies/Adverse Reactions: Allergies Allergy/AdvReac Type Severity Reaction Status Date / Time No Known Allergies Allergy Verified 07/01/18 16:39 Review of Systems ROS Statement: Except As Marked, All Systems Reviewed And Found Negative Skin: Positive for: Rash (red itchy and burning rash to chest, arms, back, and legs) Physical Exam - Reviewed Nursing Documentation Reviewed: Yes Vital Signs Reviewed: Yes - Physical Exam Appears: Positive for: No Acute Distress Skin: Positive for: Rash (scaly erythematous rash noted on chest wall, abdomen, back, and inguinal folds) Eye Exam: Positive for: Normal appearance ENT: Positive for: Normal ENT Inspection Neck: Positive for: Normal, Painless ROM, Supple Cardiovascular/Chest: Positive for: Regular Rate, Rhythm Respiratory: Positive for: Normal Breath Sounds. Negative for: Respiratory Distress Extremity: Positive for: Normal ROM (all extremities) Neurological/Psych: Positive for: Awake, Alert, Oriented (x3). Negative for: Motor/Sensory Deficits - Laboratory Results Result Diagrams: 07/01/18 17:07 07/01/18 17:07 - ECG O2 Sat by Pulse Oximetry: 98 (RA) Pulse Ox Interpretation: Normal - Progress ED Course And Treament: Seen by DR. Esteban. Does feel patient's rash warrants admission to hospital. We will write medrol dose pack and have her return to ED in 24-48 hours for re- evaluation. NS 1 liter 500ml per hour Medical Decision Making Medical Decision Making: Time: 1653 Initial Impression: rash, possible adverse drug reaction Initial Plan: --CMP --CBC with differential --PTT / PT --Benadryl 5mg IVP --SOLU-Medrol 125mg IVP --Pepcid 20mg IVP ScribeAttestation: Documented byEmily Anodide acting as a scribe for Judd Crowell PA-C. Provider ScribeAttestation: All medical record entries made by the Scribe were at my direction and personally dictated by me. I have reviewed the chart and agree that the record accurately reflects my personal performance of the history, physical exam, medical decision making, and the department course for this patient. I have also personally directed, reviewed, and agree with the discharge instructions and disposition. Disposition - Clinical Impression Clinical Impression: Rash and nonspecific skin eruption - Patient ED Disposition Is Patient to be Admitted: No - Disposition Disposition: Routine/Home Disposition Time: 18:16 Condition: IMPROVED Additional Instructions: REGRESA EN 24 A 48 HORAS PARA REVISAR Prescriptions: DiphenhydrAMINE [Benadryl] 1 - 2 tab PO Q6 PRN #24 cap PRN Reason: Itching / Pruritus Famotidine [Pepcid] 20 mg PO BID #10 tab Methylprednisolone [Medrol Dose Pack (21 tabs)] 4 mg PO DAILY #21 mg Instructions: Skin Rash (DC) Print Language: GUINEAN
[2018-07-01] MEDS ORDERED: DiphenhydrAMINE 50 mg/ml Inj ONE (17:14)
[2018-07-01 17:37] LABS: BASO # 0.1 K/uL (0.0-0.2); BASO % 0.8 % (0.0-2.0); EOS # 0.2 K/uL (0.0-0.7); EOS % 1.4 % (0.0-4.0); HEMOGLOBIN 13.5 g/dL (12.0-16.0); LYMPH # 1.6 K/uL (1.0-4.3); LYMPH % 10.7 % (20.0-40.0); MEAN CORPUSCULAR HEMOGLOBIN 29.1 pg (27.0-31.0); MEAN CORPUSCULAR HGB CONC 32.7 g/dL (33.0-37.0); MEAN PLATELET VOLUME 8.9 fl (7.2-11.7); MONO # 0.7 K/uL (0.0-0.8); MONO % 4.9 % (0.0-10.0); NEUT # 12.3 K/uL (1.8-7.0); NEUT % 82.2 % (50.0-75.0); NRBC % 0.1 % (0.0-0.0); RBC 4.64 Mil/uL (3.80-5.20); RED CELL DISTRIBUTION WIDTH 14.5 % (11.5-14.5)
[2018-07-01 17:40] LABS: INR 1.2; PROTHROMBIN TIME 13.6 Seconds (9.8-13.1)
[2018-07-01 17:43] LABS: PARTIAL THROMBOPLASTIN TIME 34.7 Seconds (25.6-37.1)
[2018-07-01 17:47] LABS: ALB/GLOB RATIO 1.1 (1.0-2.1); CALCIUM 8.9 mg/dL (8.4-10.2)
[2018-07-01] MEDS ORDERED: Sodium Chloride 0.9% 1,000 ML IV STA (17:59)
[2018-07-01 19:39] VITALS: BP 115/71; PULSE 76; RESP 16; TEMP 98
[2018-07-01 22:34] VITALS: O2SAT 98
== END 2018-07-01 19:39 | disposition home or self-care (01) ==
LOC: H.ER 15:57
DX: R21 Rash and other nonspecific skin eruption (principal); E11.9 Type 2 diabetes mellitus without complications; I10 Essential (primary) hypertension; Z86.59 Personal history of other mental and behavioral disorders; E78.00 Pure hypercholesterolemia, unspecified
CPT/HCPCS: 80053; 85025; 85610; 85730; 96374; 96375; 99283; J1200; J2930; J7030

== ENCOUNTER 2018-07-12 14:08 | Emergency (ER) | payer MEDICARE ==
[2018-07-12 14:09] VITALS: BMI 34.3
[2018-07-12 14:21] VITALS: TEMP 97.9; O2SAT 99
--- NOTE | 2018-07-12 14:59 | ED PDOC ---
HPI: Skin/Bite Injury Time Seen by Provider: 07/12/18 14:30 Chief Complaint (Nursing): Abnormal Skin Integrity Chief Complaint (Provider): rash History Per: Patient History/Exam Limitations: no limitations Onset/Duration Of Symptoms: Days (2 and 1/2 weeks), Gradual, Persistent Current Symptoms Are (Timing): Still Present Quality Of Symptoms: Painful, Other (red) Additional Complaint(s): gradual onset rash to body over 2 weeks, started on chest and has progressed down entire trunk/back to arms and abdomen, buttocks and upper legs. Feels very nurse monitoring areas of rash. Also reporting intermittent chills since last night. Seen in this ER and steroids were initiated as well as antihistamines with no relief. Recently on antibiotics for bilateral mastoiditis: inpatient on zosyn and then outpatient on augmentin. Rash started just prior to completing course of medications. Pt has h/o psoriasis however psoriatic rash was always restricted to elbows and tops of feet. PMD: [facility] Past Medical History Reviewed: Historical Data, Nursing Documentation, Vital Signs Vital Signs: Last Vital Signs Temp 97.9 F 07/12/18 14:19 Pulse 84 07/12/18 14:19 Resp 16 07/12/18 14:19 BP 120/67 07/12/18 14:19 Pulse Ox 99 07/12/18 14:19 Primary Care Provider: Stone Ahn - Medical History PMH: Depression, Diabetes, HTN, Hypercholesterolemia, Hyperlipidemia Denies: Chronic Kidney Disease - Surgical History Other surgeries: LEFT knee surgery - Family History Family History: States: Other Other Family History: Ovarian cancer GM - Social History Current smoker - smoking cessation education provided: No - Home Medications Home Medications: Ambulatory Orders Medication Instructions Recorded Amitriptyline [Elavil] 1 tab PO HS 06/20/18 Atorvastatin Calcium 20 mg PO DAILY 06/20/18 Losartan/Hydrochlorothiazide 1 tab PO DAILY 06/20/18 [Losartan-Hctz 100-25 mg Tab] Naproxen [Naprosyn] 500 mg PO Q12 PRN 06/20/18 Sitagliptin Phos/Metformin HCl 1 tab PO BID 06/20/18 [Janumet 50-1,000 mg Tablet] Amoxicillin/Clavulanate [Augmentin 1 tab PO BID #14 tab 06/21/18 875 MG-125 MG] DiphenhydrAMINE [Benadryl] 1 - 2 tab PO Q6 PRN #24 cap 07/01/18 Famotidine [Pepcid] 20 mg PO BID #10 tab 07/01/18 Methylprednisolone [Medrol Dose 4 mg PO DAILY #21 mg 07/01/18 Pack (21 tabs)] Colloidal Oatmeal [Oatmeal Bath] 1 each TP DAILY #10 packet 07/12/18 Petrolatum,White [Aquaphor] 1 appl TP CONT #85 g 07/12/18 hydrOXYzine Pamoate [Vistaril] 25 mg PO Q6 #60 cap 07/12/18 predniSONE [Prednisone] 60 mg PO DAILY 10 Days tab 07/12/18 - Allergies Allergies/Adverse Reactions: Allergies Allergy/AdvReac Type Severity Reaction Status Date / Time No Known Allergies Allergy Verified 07/12/18 14:18 Review of Systems ROS Statement: Except As Marked, All Systems Reviewed And Found Negative (and as per HPI) Constitutional: Positive for: Fever, Chills Eyes: Negative for: Redness ENT: Negative for: Nose Discharge, Throat Pain Skin: Positive for: Rash. Negative for: Lesions Physical Exam - Reviewed Nursing Documentation Reviewed: Yes Vital Signs Reviewed: Yes - Physical Exam Appears: Positive for: No Acute Distress, Uncomfortable Head Exam: Positive for: ATRAUMATIC, NORMOCEPHALIC Skin: Positive for: Warm, Dry, Rash (deep confluent dry erythema from upper chest to upper arms and abdomen and back and buttocks extending to medial upper thighs, edges surrounded by papules and extensive scaling. NO blisters or Nikolskys. Palms and soles spared. Face mostly spared except for faint erythema to forehead.) Eye Exam: Positive for: EOMI, PERRL ENT: Positive for: Pharynx Is (clear. No lesions.), Other (tacky mucus membranes). Negative for: Pharyngeal Erythema, Tonsillar Exudate Neck: Positive for: Painless ROM, Supple Cardiovascular/Chest: Positive for: Regular Rate, Rhythm. Negative for: Murmur Respiratory: Positive for: Normal Breath Sounds. Negative for: Respiratory Distress Gastrointestinal/Abdominal: Positive for: Soft. Negative for: Tenderness Back: Positive for: Normal Inspection. Negative for: Decreased ROM Extremity: Positive for: Normal ROM. Negative for: Deformity Lymphatic: Negative for: Adenopathy Neurological/Psych: Positive for: Awake, Alert. 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 Labs demonstrate normal electrolytes and patient does not demonstrate any disruption with vitals regulation. Stable for discharge with specific instructions for reevaluation in 48 hours. If rash has progressed to entire body, she will need hospitalization for supportive care. Disposition - Clinical Impression Clinical Impression: Erythrodermic psoriasis Counseled Patient/Family Regarding: Studies Performed, Diagnosis, Need For Followup - Disposition Referrals: Raheem Fuller MD [Staff Provider] - (LLAME A LA OFICINA HOY Y HACER BRANDAN GREGORIO ESTA SEMANA) Disposition: Routine/Home Disposition Time: 16:57 Condition: STABLE Additional Instructions: REGRESA A LA SHEYLA DE EMERGENCIA EN 48 HORAS A CHEQAR DE NUEVO REGRESA A LA SHEYLA DE EMERGENCIA INMEDIATO SI TIENE RONCHAS EN TODO BELTRE CUERPO BULL MUCHOS SUEROS A CONTINUAR HIDRATRACION Prescriptions: Colloidal Oatmeal [Oatmeal Bath] 1 each TP DAILY #10 packet hydrOXYzine Pamoate [Vistaril] 25 mg PO Q6 #60 cap Petrolatum,White [Aquaphor] 1 appl TP CONT #85 g predniSONE [Prednisone] 60 mg PO DAILY 10 Days tab Instructions: Skin Rash (DC), Psoriasis (DC) Print Language: YI
[2018-07-12] MEDS ORDERED: Sodium Chloride 0.9% 1,000 ML IV STA (15:05)
[2018-07-12 16:15] LABS: BASO % 0.4 % (0.0-2.0); EOS # 0.3 K/uL (0.0-0.7); EOS % 2.4 % (0.0-4.0); HEMOGLOBIN 13.1 g/dL (12.0-16.0); INR 1.1; LYMPH # 1.7 K/uL (1.0-4.3); LYMPH % 14.7 % (20.0-40.0); MEAN CELL VOLUME 89.5 fl (81.0-99.0); MEAN CORPUSCULAR HEMOGLOBIN 29.1 pg (27.0-31.0); MEAN CORPUSCULAR HGB CONC 32.5 g/dL (33.0-37.0); MEAN PLATELET VOLUME 9.2 fl (7.2-11.7); MONO # 0.6 K/uL (0.0-0.8); NEUT # 8.8 K/uL (1.8-7.0); NEUT % 77.5 % (50.0-75.0); PROTHROMBIN TIME 12.1 Seconds (9.8-13.1); RBC 4.51 Mil/uL (3.80-5.20); WHITE BLOOD COUNT 11.4 K/uL (4.8-10.8)
[2018-07-12 16:21] LABS: ALB/GLOB RATIO 1.2 (1.0-2.1); ALBUMIN 3.8 g/dL (3.5-5.0); ALT/SGPT 32 U/L (9-52); AST/SGOT 23 U/L (14-36); BLOOD UREA NITROGEN 31 mg/dl (7-17); CALCIUM 8.9 mg/dL (8.4-10.2); GFR NON-AFRICAN AMERICAN 55
[2018-07-12 17:51] VITALS: BP 118/70; PULSE 80; RESP 18
== END 2018-07-12 17:45 | disposition home or self-care (01) ==
LOC: H.ER 14:08
DX: L40.0 Psoriasis vulgaris (principal)
CPT/HCPCS: 80053; 82550; 83605; 83735; 84100; 85025; 85610; 85730; 86140; 86850; 86900; 87040; 96374; 99283; J2930; J7030